=== PATIENT | female | born 1985 | race Caucasian/White ===

== ENCOUNTER 2017-11-13 08:55 | Emergency (ER) | payer MEDICAID ==
[2017-11-13 09:08] VITALS: O2SAT 100; BMI 27.2
--- NOTE | 2017-11-13 10:44 | C.PDOC ---
History Of Present Illness 31 y/o female presents to the ED complaining of nausea, vomiting, and lower abdominal pain that began 4 days ago. She describes the pain as sharp and stabbing. Patient saw a doctor on Thursday and was prescribed Zofran and Bentyl without relief. She then saw her PMD on Thursday and started taking omeprazole with no improvement. Patient reports having a decreased appetite but it still tolerating PO liquids and soups. She denies any associated diarrhea, dysuria, painful intercourse, vaginal bleeding, urinary frequency/urgency, fever or chills. LMP was 10/16/17. Patient reports taking control and has regular periods every 3 months. She denies possibility of . Time Seen by Provider: 11/13/17 09:49 Chief Complaint (Nursing): Abdominal Pain History Per: Patient History/Exam Limitations: no limitations Onset/Duration Of Symptoms: Days (x5) Current Symptoms Are (Timing): Still Present Location Of Pain/Discomfort: RLQ, Epigastric, LLQ, Suprapubic Quality Of Discomfort: Sharp, Stabbing Associated Symptoms: Nausea, Vomiting Abnormal Vaginal Bleeding: No Last Menstral Period: 10/16/17 Past Medical History Reviewed: Historical Data, Nursing Documentation, Vital Signs Vital Signs: Last Vital Signs Temp 98.0 F 11/13/17 14:53 Pulse 61 11/13/17 14:53 Resp 16 11/13/17 14:53 BP 129/70 11/13/17 14:53 Pulse Ox 100 11/13/17 16:23 - Medical History PMH: Sexually Transmitted Disease (abnormal pap smear indicative of HPV) Surgical History: No Surg Hx Family History: States: No Known Family Hx - Social History Hx Alcohol Use: No Hx Substance Use: No - Immunization History Hx Influenza Vaccination: No Hx Pneumococcal Vaccination: No Review Of Systems Constitutional: Negative for: Fever, Chills Cardiovascular: Negative for: Chest Pain Respiratory: Negative for: Shortness of Breath Gastrointestinal: Positive for: Nausea, Vomiting, Abdominal Pain. Negative for : Diarrhea, Hematochezia, Hematemesis Genitourinary: Positive for: Vaginal Discharge (occasional white discharge). Negative for: Dysuria, Frequency, Incontinence, Vaginal Bleeding Musculoskeletal: Negative for: Back Pain Neurological: Negative for: Weakness Physical Exam - Physical Exam Appears: Non-toxic, No Acute Distress Skin: Warm, Dry Head: Atraumatic, Normacephalic Eye(s): bilateral: Normal Inspection, PERRL, EOMI Oral Mucosa: Moist Neck: Supple Chest: Symmetrical Cardiovascular: Rhythm Regular Respiratory: Normal Breath Sounds, No Rales, No Rhonchi, No Wheezing Gastrointestinal/Abdominal: Bowel Sounds (normoactive), Soft, Tenderness (mild tenderness on palpation of the epigastrium, LLQ, RLQ, and suprapubic areas), No Distention, No Guarding, No Rebound Back: Normal Inspection Extremity: Bilateral: Atraumatic, No Pedal Edema, Normal Color And Temperature Pulses: Left Dorsalis Pedis: Normal, Right Dorsalis Pedis: Normal Neurological/Psych: Oriented x3, Normal Speech Gait: Steady ED Course And Treatment - Laboratory Results Result Diagrams: 11/13/17 10:55 11/13/17 10:55 Urine POC: Negative O2 Sat by Pulse Oximetry: 100 (RA) Pulse Ox Interpretation: Normal - CT Scan/US CT Abd/Pelvis Other Rad Studies (CT/US): Read By Radiologist, Radiology Report Reviewed CT/US Interpretation: Accession No. : [id number]. Patient Name / ID : EDUARDO BARNETT / [id number]. Exam Date : 11/13/2017 14:11:37 ( Approved ). Study Comment : Sex / Age : F / 31Y. Creator : Elvira Pinzon MD. Dictator : Elvira Pinzon MD. Agency Sales Management Assistant : Can Intake Worker : Elvira Pinzon MD. Approver2 : Report Date : 11/13/2017 16:01:35. My Comment : . PROCEDURE: CT Abdomen and Pelvis with oral and IV contrast. HISTORY: llq pain. COMPARISON: Abdominal ultrasound performed 10/21/12. TECHNIQUE: Contiguous axial images of the abdomen and pelvis. Oral and IV contrast was administered. Coronal and Sagittal reformats generated and reviewed. Contrast dose: 100 mL Omnipaque 350. Radiation dose: Total exam DLP = 548.48 mGy-cm. This CT exam was performed using one or more of the following dose reduction techniques: Automated exposure control, adjustment of the mA and/or kV according to patient size, and/or use of iterative reconstruction technique. FINDINGS: LOWER THORAX: No visible consolidation, pleural effusion, or pneumothorax. LIVER: Unremarkable. GALLBLADDER AND BILE DUCTS: Unremarkable. PANCREAS: Unremarkable. SPLEEN: Unremarkable. ADRENALS: Unremarkable. KIDNEYS AND URETERS: The kidneys enhance symmetrically. No hydronephrosis or obstructing renal calculus. BLADDER: The urinary bladder appears unremarkable. REPRODUCTIVE: Uterus is present. APPENDIX: The appendix appears within normal limits of caliber. No secondary signs of acute appendicitis. BOWEL: The stomach is nondistended. The bowel loops appear within normal limits of caliber without evidence of intestinal obstruction. Moderate constipation. PERITONEUM: No significant free fluid. No definite free air. LYMPH NODES: No bulky lymphadenopathy identified. VASCULATURE: No aortic aneurysm. BONES: No acute osseous abnormality is detected. OTHER FINDINGS: None. IMPRESSION: Moderate constipation. Medical Decision Making Medical Decision Making: Initial Plan: --Blood work --Urinalysis --Pepcid 20 mg IVP --Zofran 4 mg IVP --Reassess and dispo 1145 pt reports nausea and epigastric pain decreased after pepcid and zofran, still with lower abdominal pain. left side more prominent. willl get ct scan to eval for diverticulitis /colitis [address] scan discussed with patient. pt sts she is frequently constipated, and does drink a lot of water, and est high fiber foods. pt advised to f/u with gastroenterology for gastritis and for constipation. Disposition Counseled Patient/Family Regarding: Studies Performed, Diagnosis, Need For Followup, Rx Given - Disposition Referrals: Todd Dick MD [Medical Doctor] - Andrew Joe MD [Medical Doctor] - Disposition: HOME/ ROUTINE Disposition Time: 16:18 Condition: GOOD Additional Instructions: Drink increased water. eat more high fiber foods. Continue omperazole. Take lactulose as prescribed. Follow up with your primary care doctor and with either Dr Joe or branch billing payroll clerk of your choice. Return to ER for any worse symptoms. Prescriptions: Lactulose 20 gm PO DAILY PRN #300 solution PRN Reason: Constipation Instructions: High Fiber Diet, Constipation, Adult (DC), Gastritis (DC), Ulcer and Gastritis Diet Forms: [facility] ([place]), General Discharge Instructions - Clinical Impression Clinical Impression: Gastritis, Constipation, Abdominal pain - PA / SENIOR [employer]FF [employer]ED EMPLOYMENT / Resident Statement MD/DO has reviewed & agrees with the documentation as recorded. - Scribe Statement The provider has reviewed the documentation as recorded by the Scribe (Concetta Johnston) All medical record entries made by the Scribe were at my direction and personally dictated by me. I have reviewed the chart and agree that the record accurately reflects my personal performance of the history, physical exam, medical decision making, and the department course for this patient. I have also personally directed, reviewed, and agree with the discharge instructions and disposition.
[2017-11-13 11:03] LABS: BASO # 0.1 K/uL (0.0-0.2); BASO % 3.3 % (0.0-2.0); EOS # 0.1 K/uL (0.0-0.7); EOS % 2.6 % (0.0-4.0); HEMOGLOBIN 12.5 g/dL (11.0-16.0); LYMPH # 2.7 K/uL (1.0-4.3); LYMPH % 61.6 % (20.0-40.0); MEAN CELL VOLUME 81.4 fL (81.0-99.0); MEAN CORPUSCULAR HEMOGLOBIN 27.7 pg (27.0-31.0); MEAN PLATELET VOLUME 8.9 fL (7.2-11.7); MONO # 0.3 K/uL (0.0-0.8); MONO % 6.8 % (0.0-10.0); NEUT # 1.1 K/uL (1.8-7.0); NEUT % 25.7 % (50.0-75.0); NRBC % 0.1 % (0.0-2.0); PLATELET COUNT 223 K/uL (130-400); RED CELL DISTRIBUTION WIDTH 13.1 % (11.5-14.5); WHITE BLOOD COUNT 4.4 K/uL (4.8-10.8)
[2017-11-13 11:10] LABS: SQUAMOUS EPITHIAL 1 /hpf (0-5); URINE BILIRUBIN NEGATIVE (NEGATIVE); URINE BLOOD 1+ (NEGATIVE); URINE CLARITY Clear (Clear); URINE COLOR Yellow (YELLOW); URINE GLUCOSE (UA) NORMAL (Normal); URINE LEUKOCYTE ESTERASE NEG Leu/uL (Negative); URINE PROTEIN NEGATIVE (NEGATIVE); URINE UROBILINOGEN NORMAL mg/dL (0.2-1.0)
[2017-11-13 11:13] LABS: ALB/GLOB RATIO 1.6 (1.0-2.1); ALBUMIN 4.6 g/dL (3.5-5.0); ALT/SGPT 23 U/L (9-52); AST/SGOT 14 U/L (14-36); BLOOD UREA NITROGEN 7 mg/dL (7-17); CALCIUM 9.3 mg/dl (8.6-10.4); GFR NON-AFRICAN AMERICAN > 60; LIPASE 160 U/L (23-300)
[2017-11-13 11:47] LABS: MONOCYTE 7 % (0-10); NEUTROPHIL 23 % (50-75); TOTAL CELLS COUNTED 100
[2017-11-13 11:48] LABS: EOSINOPHIL 1 % (0-4); LYMPHOCYTE 69 % (20-40); PLATELET ESTIMATE NORMAL (NORMAL)
[2017-11-13] MEDS ORDERED: Iohexol 240 (50 ml) PO STA (11:48)
[2017-11-13] MEDS ORDERED: Iohexol 240 (50 ml) ONE (12:12)
[2017-11-13] MEDS ORDERED: Iohexol 350mg/ml 100 ML ONE (13:11)
[2017-11-13 14:54] VITALS: BP 129/70; PULSE 61; RESP 16; TEMP 98
--- NOTE | 2017-11-13 16:03 | CT ---
PROCEDURE: CT Abdomen and Pelvis with oral and IV contrast. HISTORY: llq pain COMPARISON: Abdominal ultrasound performed 10/21/12 TECHNIQUE: Contiguous axial images of the abdomen and pelvis. Oral and IV contrast was administered. Coronal and Sagittal reformats generated and reviewed. Contrast dose: 100 mL Omnipaque 350 Radiation dose: Total exam DLP = 548.48 mGy-cm. This CT exam was performed using one or more of the following dose reduction techniques: Automated exposure control, adjustment of the mA and/or kV according to patient size, and/or use of iterative reconstruction technique. FINDINGS: LOWER THORAX: No visible consolidation, pleural effusion, or pneumothorax. LIVER: Unremarkable. GALLBLADDER AND BILE DUCTS: Unremarkable. PANCREAS: Unremarkable. SPLEEN: Unremarkable. ADRENALS: Unremarkable. KIDNEYS AND URETERS: The kidneys enhance symmetrically. No hydronephrosis or obstructing renal calculus. BLADDER: The urinary bladder appears unremarkable. REPRODUCTIVE: Uterus is present. APPENDIX: The appendix appears within normal limits of caliber. No secondary signs of acute appendicitis. BOWEL: The stomach is nondistended. The bowel loops appear within normal limits of caliber without evidence of intestinal obstruction. Moderate constipation. PERITONEUM: No significant free fluid. No definite free air. LYMPH NODES: No bulky lymphadenopathy identified. VASCULATURE: No aortic aneurysm. BONES: No acute osseous abnormality is detected. OTHER FINDINGS: None. IMPRESSION: Moderate constipation.
== END 2017-11-13 16:32 | disposition home or self-care (01) ==
LOC: C.ER 08:55
DX: K29.70 Gastritis, unspecified, without bleeding (principal); K59.00 Constipation, unspecified; R10.30 Lower abdominal pain, unspecified
CPT/HCPCS: 74177; 80053; 81001; 83690; 85025; 96374; 96375; 99285; J2405; Q9966; Q9967